=== PATIENT | female | born 1975 | race Hispanic/Latino ===

== ENCOUNTER → 2016-09-25 | Day surgery (SDC) | payer OTHER ==
--- NOTE | 2016-09-24 10:43 | History & Physical Pre-Op ---
General Information and HPI History of Present Illness: This patient is a 40-year-old 4 para 4 TAHMINA-2 and TAHMINA-3 on colposcopic biopsy presents for LEEP conization. Allergies/Medications Allergies: Coded Allergies: No Known Allergies (09/20/16) Past History Surgical History Pertinent Surgical History: none Review of Systems Review of Systems Constitutional: Reports: no symptoms. EENTM: Reports: no symptoms. Cardiovascular: Reports: no symptoms. Respiratory: Reports: no symptoms. GI: Reports: no symptoms. Genitourinary: Reports: no symptoms. Musculoskeletal: Reports: no symptoms. Skin: Reports: no symptoms. Neurological/Psychological: Reports: no symptoms. Hematologic/Endocrine: Reports: no symptoms. Immunologic/Allergic: Reports: no symptoms. All Other Systems: Reviewed and Negative Exam & Diagnostic Data Last 24 Hrs of Vital Signs/I&O Vital signs stable, afebrile Physical Exam: Weight 176 pounds HEENT: Normocephalic atraumatic Chest: Clear to auscultation bilaterally Cardiovascular: Normal S1, S2 Abdomen: Soft and nontender nondistended no masses Pelvic: Deferred OR Extremities: No clubbing cyanosis or edema Assessment/Plan Assessment/Plan: TAHMINA-3 Plan: LEEP conization As Ranked By This Provider Problem List: 1. 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
[~2016-09-25] VITALS: Ht 167.6 cm; Wt 72.6 kg
--- NOTE | 2016-09-27 19:11 | Operative Report ---
Operative/Inv Procedure Report Surgery Date: 09/25/16 Name of Procedure: LEEP conization Pre-Operative Diagnosis: TAHMINA-3 Post-Operative Diagnosis: Pathology pending Estimated Blood Loss: scant Surgeon/Motorcycle Mechanic: CLEMENT RESENDEZ MD Anesthesia: moderate sedation Operative/Procedure Note Note: Patient was brought to the operating room placed on the OR table in the dorsal supine position. She was given adequate anesthesia and repositioned in a modified dorsal lithotomy. She was prepped and draped in usual sterile fashion. A weighted speculum was inserted into the vagina with help of a Cabazon retractor single-tooth tenaculum was attached to the anterior lip of the cervix. Cervix was injected with 1% Marcaine with epinephrine 2-1/2 mL in each quadrant. Stay sutures of 0 Polysorb in a [id number] fashion were placed at the 3 and 9:00 positions and tagged. The weighted speculum and Cabazon were removed and replaced with a rubber coated bivalve speculum. Using the sutures for tension against the weighted speculum a LEEP conization was performed from the 6:00 to 12 o'clock position. This was removed intact with a silk suture at 12:00. An endocervical curettage was performed revealing a small amount of tissue. The base of the defect was then coagulated using the ball electrode. Juan coagulant powder was placed in the defect as well the 6 sutures were cut the instruments were removed patient was awakened and sent to recovery in good condition. All needle, sponge, and is recalcitrant correct at the end of the procedure 2.
== END ==
LOC: STS 02:16
DX: D06.0 Carcinoma in situ of endocervix (principal)
CPT/HCPCS: J2250